=== PATIENT | female | born 1960 | race Caucasian/White ===

== ENCOUNTER 2017-01-28 14:28 | Emergency (ER) | payer BC ==
--- NOTE | 2017-01-28 15:03 | ED ---
General Adult HPI - General Chief complaint: Trauma Stated complaint: Fall. Chest Pain Time Seen by Provider: 01/28/17 14:53 Source: patient, RN notes reviewed Mode of arrival: wheelchair Limitations: no limitations - History of Present Illness Initial comments: Patient is a pleasant 56-year-old female presenting to the emergency Department with left-sided chest injury. Patient was playing volleyball this morning. Patient dove and landed on her left fist on her left chest. Patient is having discomfort in that area since that time. Discomfort increases with deep breaths. Patient feels a clicking with deep breaths. Patient states she may be slightly short of breath. No other area of injury. - Related Data Home Medications Medication Instructions Recorded Confirmed No Known Home Medications [No 01/28/17 01/28/17 Known Home Medications] Allergies Allergy/AdvReac Type Severity Reaction Status Date / Time cefaclor [From [facility]] Allergy Itching Verified 01/28/17 15:38 Review of Systems ROS Statement: Those systems with pertinent positive or pertinent negative responses have been documented in the HPI. ROS Other: All systems not noted in ROS Statement are negative. Constitutional: Denies: fever Eyes: Denies: eye pain ENT: Denies: ear pain Respiratory: Reports: dyspnea. Denies: cough Cardiovascular: Reports: chest pain Endocrine: Denies: fatigue Gastrointestinal: Denies: abdominal pain Genitourinary: Denies: dysuria Musculoskeletal: Denies: back pain Skin: Denies: rash Neurological: Denies: weakness Past Medical History Past Medical History: No Reported History History of Any Multi-Drug Resistant Organisms: None Reported Past Surgical History: No Surgical Hx Reported Past Psychological History: No Psychological Hx Reported Smoking Status: Never smoker Past Alcohol Use History: Daily Past Drug Use History: None Reported General Exam Limitations: no limitations General appearance: alert, in no apparent distress Head exam: Present: atraumatic Eye exam: Present: normal appearance ENT exam: Present: normal oropharynx Neck exam: Present: normal inspection. Absent: tenderness Respiratory exam: Present: normal lung sounds bilaterally, chest wall tenderness (Left lateral upper chest wall) Cardiovascular Exam: Present: regular rate, normal rhythm GI/Abdominal exam: Present: soft. Absent: tenderness Extremities exam: Present: normal inspection Neurological exam: Present: alert Psychiatric exam: Present: normal affect, normal mood Skin exam: Present: normal color Course Vital Signs 01/28/17 01/28/17 14:44 15:35 Temperature 97.8 F Pulse Rate 75 70 Respiratory 20 18 Rate Blood Pressure 130/82 129/86 O2 Sat by Pulse 99 100 Oximetry Medical Decision Making - Medical Decision Making Patient reevaluated and resting comfortably at bedside. Patient updated on results. Patient refuses pain medication. - Radiology Data Radiology results: image reviewed (X-ray shows no evidence of pneumothorax or rib fracture) Disposition Clinical Impression: Contusion, chest wall Disposition: HOME SELF-CARE Condition: Stable Instructions: Rib Fracture (ED) Additional Instructions: Please follow-up with primary care physician in the next couple of days for recheck. Do not wrap your chest. Encourage deep breaths. Return for difficulty breathing, increased pain, worsening symptoms or other concerns. Referrals: Cheryl Loaiza MD [STAFF PHYSICIAN] - 1-2 days Sloane Pedro MD [STAFF PHYSICIAN] - 1-2 days Time of Disposition: 15:55
--- NOTE | 2017-01-28 15:34 | XR ---
EXAMINATION TYPE: PA chest and left rib series DATE OF EXAM: 01/28/2017 COMPARISON: NONE HISTORY: 56-year-old female left-sided rib pain after volleyball injury. FINDINGS: Heart is normal size. Aorta and pulmonary vasculature within normal limits. No consolidation, pneumot horax, or pleural effusion. No displaced left rib fracture seen. IMPRESSION: No acute cardiopulmonary process or displaced left rib fracture.
[2017-01-28 16:31] VITALS: BP 155/82; PULSE 64; RESP 16; TEMP 97.6
== END 2017-01-28 16:31 | disposition home or self-care (01) ==
LOC: EC 14:28
DX: S20.212A Contusion of left front wall of thorax, initial encounter (principal); Z88.1 Allergy status to other antibiotic agents; W18.39XA Other fall on same level, initial encounter; Y93.68 Activity, volleyball (beach) (court)
CPT/HCPCS: 99283